=== PATIENT | female | born 1995 | race Two or more races ===

== ENCOUNTER 2020-03-25 13:37 | Emergency (ER) | payer OTHER ==
[~2020-03-25] VITALS: Ht 154.9 cm; Wt 56.7 kg
[2020-03-25] MEDS ORDERED: KETO10TA2 PO (20:00)
[2020-03-25] MEDS ORDERED: PEPCID AC20 MG PO (20:00)
[2020-03-25] MEDS ORDERED: ORPHENADRINE C100 MG PO (20:00)
== END 2020-03-25 21:07 | disposition home or self-care (01) ==
LOC: ER 13:37
DX: S40.012A Contusion of left shoulder, initial encounter (principal); S50.12XA Contusion of left forearm, initial encounter; S60.222A Contusion of left hand, initial encounter; M54.2 Cervicalgia; V00.131A Fall from skateboard, initial encounter; Y93.51 Activity, roller skating (inline) and skateboarding; Y92.018 Other place in single-family (private) house as the place of occurrence of the external cause; Y99.8 Other external cause status; Z03.818 Encounter for observation for suspected exposure to other biological agents ruled out